=== PATIENT | male | born 1995 | race Caucasian/White ===

== ENCOUNTER 2017-12-15 16:58 | Emergency (ER) | payer SELFPAY | END 2017-12-15 19:00 | disposition left against medical advice (07) | LOC: D.ER 16:58 | DX: R11.2 Nausea with vomiting, unspecified (principal) ==

== ENCOUNTER 2018-01-20 23:29 | Emergency (ER) | payer SELFPAY | END 2018-01-21 00:32 | disposition home or self-care (01) | LOC: D.ER 23:29 | DX: S91.114D Laceration without foreign body of right lesser toe(s) without damage to nail, subsequent encounter (principal); L08.9 Local infection of the skin and subcutaneous tissue, unspecified; X58.XXXD Exposure to other specified factors, subsequent encounter ==